=== PATIENT | male | born 1965 | race Caucasian/White ===

== ENCOUNTER → 2018-10-17 | Outpatient (CLI) | payer BC ==
[2016-01-06 12:12] VITALS: BMI 32.8
[~2018-10-17] MED LIST: HYDR-654 PO; LISI20TA29 PO; RIVA15TA PO; TEM15 PO
--- NOTE | 2018-10-17 13:08 | RADIOLOGY IMAGING REPORT ---
FACILITY: [facility] - [place] PATIENT NAME: Piotr Maher : 1965 MR: [id number] V: [id number] EXAM DATE: ORDERING PHYSICIAN: ESCOBAR QUIÑONEZ TECHNOLOGIST: Location: [facility] - [place] Patient: Piotr Maher : 1965 Visit/Account:[id number] Date of Sevice: 10/17/2018 Chest 2 views: HISTORY: Right chest pain. No trauma. COMPARISON: 02/13/2016 FINDINGS: Frontal and lateral chest: Cardiomediastinal silhouette is within normal limits. There is no infiltrate or pleural effusion. No pneumothorax. Pulmonary vasculature is normal. Minimal left basilar subsegmental atelectasis or scarring is unchanged. IMPRESSION: 1. No evidence of acute cardiopulmonary abnormality. 2. Results of the study were called to the referring clinician/clinicians patient account representative by the [facility] at my direction, 1300 hours, 10/17/2018. Report Dictated By: Michela Joe MD at 10/17/2018 1:00 PM Report E-Signed By: Michela Joe MD at 10/17/2018 1:03 PM WSN:[email or web address]
== END ==
LOC: RAD 12:12
PROVIDERS: ATTEND Family Medicine
DX: R07.2 Precordial pain (principal)
CPT/HCPCS: 71046

== ENCOUNTER → 2018-12-22 | Outpatient (CLI) | payer BC ==
[2016-01-06 12:12] VITALS: BMI 32.8
--- NOTE | 2018-12-22 08:09 | RADIOLOGY IMAGING REPORT ---
FACILITY: [facility] - [place] PATIENT NAME: Piotr Maher : 1965 MR: [id number] V: [id number] EXAM DATE: ORDERING PHYSICIAN: ESCOBAR QUIÑONEZ TECHNOLOGIST: Location: [facility] - [place] Patient: Piotr Maher : 1965 Visit/Account:[id number] Date of Sevice: 12/22/2018 Single view of the orbits INDICATION: Pre-MRI. Evaluate for radiopaque foreign body. FINDINGS: Single Holm' view was obtained of the skull. No evidence of radiopaque foreign body over lying the bilateral orbits. The visualized paranasal sinuses appear patent. No acute osseous abnorm ality identified. IMPRESSION: No evidence of radiopaque foreign body overlying the orbits. Report Dictated By: Erick Coon MD at 12/22/2018 7:59 AM Report E-Signed By: Erick Coon MD at 12/22/2018 8:00 AM WSN:[email or web address]
--- NOTE | 2018-12-22 16:39 | RADIOLOGY IMAGING REPORT ---
FACILITY: [facility] PATIENT NAME: Piotr Maher : 1965 MR: [id number] V: [id number] EXAM DATE: ORDERING PHYSICIAN: ESCOBAR QUIÑONEZ TECHNOLOGIST: Location: [facility] - [place] Patient: Piotr Maher : 1965 Visit/Account:[id number] Date of Sevice: 12/22/2018 SHOULDER RIGHT W/O CONTRAST HISTORY: Shoulder pain COMPARISON: None TECHNIQUE: The patient was unable to start the examination secondary to claustrophobia. No images wer e obtained. Report Dictated By: Braulio Rehman MD at 12/22/2018 4:31 PM Report E-Signed By: Braulio Rehman MD at 12/22/2018 4:32 PM WSN:[email or web address]
== END ==
LOC: MRI 00:34
PROVIDERS: ATTEND Family Medicine
DX: M25.511 Pain in right shoulder (principal)
CPT/HCPCS: 70030